=== PATIENT | male | born 1950 | race Caucasian/White ===

== ENCOUNTER → 2021-12-20 09:11 | Outpatient (BNVA) | payer MEDICARE, OTHER, SELFPAY | PROVIDERS: PCP Internal Medicine Hematology & Oncology; Visit Provider Nurse Practitioner Family | DX: G47.33 Obstructive sleep apnea (adult) (pediatric) (principal) | CPT/HCPCS: 99202 ==

== ENCOUNTER → 2022-07-29 09:57 | Outpatient (BNVA) | payer MEDICARE, OTHER, SELFPAY | PROVIDERS: PCP Internal Medicine Hematology & Oncology; Visit Provider Nurse Practitioner Family | DX: G47.33 Obstructive sleep apnea (adult) (pediatric) (principal) | CPT/HCPCS: 99212 ==

== ENCOUNTER 2024-05-16 11:29 | Outpatient (AMB) | payer MEDICARE, OTHER, SELFPAY ==
--- NOTE | 2024-05-16 11:38 | A.OFFVIS_ITS ---
Vital Signs 05/16/24 11:41 Height 5 ft 10 in Weight 178 lb BMI 25.5 BP 105/58 L Blood Pressure Location Rt brachial Position Sitting Pulse 56 Pulse Source Pulse Oximeter Pulse Oximetry (%) 99 Oxygen Delivery Method Room Air Intake Visit Reasons: 1yr follow up chadd Direct Mail Coordinator Required: No Accompanied by: Daughter Allergies carisoprodol Allergy (Mild, Verified 05/16/24 11:43) Rash Ssebwnf-WIL-TpI Reductase Inhibitor Adverse Reaction (Mild, Verified 05/16/24 11:43) headaches naproxen Adverse Reaction (Verified 05/16/24 11:43) Unknown Do you need a note to return to daycare/school/sports/work: No HPI Comments Details: 1 year follow up for CHADD Bekah daughter is here with him today. Compliance Report on BRIAN: Total usages is 68/90 for 76%, Total >4 hours avg night 5 hours 32 min, AHI 1.12 Chin straps bother him at times, will get new ones. L. ear Acoustic Neuroma, chatter and undistinguished noises only, had Radiation in September 2023, sees Dr Hutchins, in [facility] Neurosurgery and Neuro -Oncology. R. ear hearing is now at 60%. Balance is good, he goes to the [facility] in [place], PT is wonderful their . Balance class for Vestibular therapy, 2x/ week. Dizziness, and falls to the side however did not hit his head, improved since beginning vestibular PT. Denies Vertigo at baseline, spontaneously once in a while. Denies N/V Vision is good wears glasses. Mood, memory, diet is good Cleans the supplies, replaces filters, tube changes water. Cancer in Remission now. PFSH Surgical History Hx of hernia repair Hx of appendectomy Family History Mother Acute rheumatoid arthritis Lung cancer Breast cancer Father FH: coronary artery bypass surgery Social History Alcohol intake: current Patient Tobacco Use Status: Never used Tobacco Review of Systems Const All systems reviewed & are unremarkable except as noted in HPI and below Physical Exam Vital Signs: Last Vital Signs Pulse 56 05/16/24 11:41 BP 105/58 L 05/16/24 11:41 Pulse Ox 99 05/16/24 11:41 Oxygen Delivery Method Room Air 05/16/24 11:41 BMI result Body Mass Index 25.5 Const General: cooperative and no acute distress Nutritional Appearance: average body habitus Orientation/consciousness: patient oriented x3 Resp Effort & Inspection: normal respiratory effort and able to speak in complete sentences Neuro General: patient oriented x3, gait normal, moves all extremities, no focal motor deficits and CN's II-XI intact bilaterally Cognition (Neuro): normal cognition Gait exam (Neuro): Normal gait present Psych Appearance: grossly normal Mental Status: mental status grossly normal Speech and movement: Normal speech and movement present Affect: Anxious affect present Attitude: cooperative Assessment & Plan Assessment & Plan (1) Balance disorder: Code(s): R26.89 - Other abnormalities of gait and mobility Category: Medical (2) Acoustic neuroma: Code(s): D33.3 - Benign neoplasm of cranial nerves Category: Medical (3) CHADD (obstructive sleep apnea): Comment: A mild degree of CHADD. The AHI was 8 with oxygen oralia was 86%. Code(s): G47.33 - Obstructive sleep apnea (adult) (pediatric) Category: Medical Plan -Patient advised to get at least 7-8 hours of sleep per night. -Going to bed at a scheduled time and waking up at a set scheduled time, helps to regulate the (sleep, body temperature hormone release) - balances the natural circadian rhythm. -Cool, dark environment with soft music, no electronic devices, sets the environment optimizing sleep. -PT Vestibular Balance -daily exercise, night time yoga, soft music, diffusing essential oils can help. -BPH - Limit caffeine, and fluids to four hours prior to bed. Coding Level of Care Code Est Pt Level 3 (48827) Diagnoses Balance disorder R26.89 Acoustic neuroma D33.3 CHADD (obstructive sleep apnea) G47.33 Time Spent (min) 30 Comment improved sleep
[2024-05-16 11:41] VITALS: BP 105/58; PULSE 56; O2SAT 99; BMI 25.5
== END 2024-05-16 12:28 | disposition home or self-care (01) ==
PROVIDERS: Visit Provider Physician Assistant Medical
DX: R26.89 Other abnormalities of gait and mobility (principal); D33.3 Benign neoplasm of cranial nerves; G47.33 Obstructive sleep apnea (adult) (pediatric)
CPT/HCPCS: 99213

== ENCOUNTER → 2024-05-16 11:29 | Outpatient (BNVA) | payer MEDICARE, OTHER, SELFPAY | PROVIDERS: Visit Provider Physician Assistant Medical | DX: G47.33 Obstructive sleep apnea (adult) (pediatric) (principal); R26.89 Other abnormalities of gait and mobility; D33.3 Benign neoplasm of cranial nerves | CPT/HCPCS: 99212 ==

== ENCOUNTER 2025-04-28 10:51 | Outpatient (AMB) | payer MEDICARE, OTHER, SELFPAY ==
[2025-04-28 10:54] VITALS: BP 114/68; PULSE 68; O2SAT 98; BMI 27.5
--- NOTE | 2025-04-28 10:54 | MHC.OFFVIS ---
Vital Signs 04/28/25 10:54 Height 5 ft 10 in Weight 191 lb 8 oz BMI 27.5 BP 114/68 Blood Pressure Location Rt brachial Position Sitting Pulse 68 Pulse Source Pulse Oximeter Pulse Oximetry (%) 98 Oxygen Delivery Method Room Air Intake Visit Reasons: ESt PT new dx Tremors Intake Note: Patient presents follow up CHADD/Acoustic neuroma - pt with Other abnormalities of gait and mobility. New diagnosis - Tremor Piano Case And Bench Assembler Required: No Accompanied by: Self / Same As Patient Allergies carisoprodol Allergy (Mild, Verified 04/28/25 10:54) Rash Qhhlvmo-MLF-KaB Reductase Inhibitor Adverse Reaction (Mild, Verified 04/28/25 10:54) headaches naproxen Adverse Reaction (Verified 04/28/25 10:54) Unknown Medication List - Last Reconciled 04/28/25 by Tanika Banegas MD blood-glucose calibrat control As directed blood-glucose meter As directed celecoxib 100 mg PO BID cholecalciferol (vitamin D3) 25 mcg PO DAILY colchicine 0.6 mg PO DAILY diclofenac sodium 1% 1 g topical DAILY docusate sodium (Colace) 100 mg PO .prn duloxetine 40 mg PO DAILY ezetimibe-rosuvastatin 10-10 mg 1 tab PO DAILY fluticasone propionate 50 mcg/actuation (Allergy Relief (fluticasone)) 1 spray intranasal DAILY fluvastatin ER 80 mg PO BEDTIME gabapentin 300 mg PO BID glucosamine HCl 1,500 mg PO DAILY ketoconazole 2% 1 appl topical .1-2xperweek lamotrigine 100 mg PO DAILY lorazepam 0.5 mg PO DAILY PRN multivitamin (Daily Multi-Vitamin tablet) 1 tab PO DAILY omega-3 fatty acids 1,200 mg PO DAILY omeprazole 20 mg PO DAILY psyllium husk (Metamucil) 1 tbsp PO BID salsalate (Disalcid) 1,000 mg PO BID tamsulosin (Flomax) 0.4 mg PO DAILY HPI Comments Details: 74y/o male with sleep apnea on CPAP, dizziness , acoustic neuroma comes here for evaluation of tremors According to his daughter Bekah , he started noticing tremors in his hands about 1 year ago with action . 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 No trouble with voice or head tremors He has gait issues related to acoustic neuroma and his back surgery in summer. he has also noticed some leg jerks when he is about to sleep.He also reports stiffness in his feet. He is on CPAP and is compliant.90 day compliance 90 % AHI 2/hr [facility] Medical History (Updated 04/28/25 @ 11:28 by Tanika Banegas MD) Coarse tremors Surgical History Hx of hernia repair Hx of appendectomy Family History Mother Acute rheumatoid arthritis Lung cancer Breast cancer Father FH: coronary artery bypass surgery Social History Alcohol intake: current Patient Tobacco Use Status: Never used Tobacco Physical Exam Vital Signs: Last Vital Signs Pulse 68 04/28/25 10:54 BP 114/68 04/28/25 10:54 Pulse Ox 98 04/28/25 10:54 Oxygen Delivery Method Room Air 04/28/25 10:54 BMI result Body Mass Index 27.5 Const General: cooperative, healthy appearing and comfortable Nutritional Appearance: average body habitus Orientation/consciousness: patient oriented x3 Neuro Other: Good facial expression and blink Mild postural tremors estelita UE FFM and foot taps - good Mild left foot weakness dorsiflexion Gait- mild antalgic, good posture , no rest tremors , decreased arm swings estelita General: patient oriented x3, tone normal and moves all extremities Cranial nerves: Yes Nystagmus not present and Yes Normal facial strength present Cognition (Neuro): normal cognition Gait exam (Neuro): Antalgic gait present Deep tendon reflexes (DTR's): Right triceps reflex intensity grade: 2+, Left triceps reflex intensity grade: 2+, Rt Biceps (C5, C6): 2+, Left biceps reflex intensity grade: 2+, Right brachioradialis reflex intensity grade: 2+, Left brachioradialis reflex intensity grade: 2+, Right patellar reflex intensity grade: 1+ and Left patellar reflex intensity grade: 1+ Coordination: rtnynj-to-fyyd test normal Assessment & Plan Assessment & Plan (1) Coarse tremors: Comment: no signs of parkinsons , mild likley exagerrated physiological tremors Code(s): G25.2 - Other specified forms of tremor Category: Medical (2) CHADD (obstructive sleep apnea): Comment: A mild degree of CHADD. The AHI was 8 with oxygen oralia was 86%. Code(s): G47.33 - Obstructive sleep apnea (adult) (pediatric) Category: Medical (3) Acoustic neuroma: Comment: had radiation Code(s): D33.3 - Benign neoplasm of cranial nerves Category: Medical Plan Will monitor tremors No need for medications now Continue CPAP compliance stressed. Coding Level of Care Code Complex visit Add On G2211 Diagnoses Coarse tremors G25.2 CHADD (obstructive sleep apnea) G47.33 Acoustic neuroma D33.3
--- OUTSIDE RECORDS SUMMARY | 2025-04-28 13:42 | XMS_ITS | Encounter Summary ---
Author Organization [facility] [employer] [facility] Address [address] [place] [address] Care Team Providers Care Buyer Internship Name Role Phone Zaheer Castro Primary Care Provider Encounter Details Date Type Department Care Team (Late st Contact Info) Description 04/13/2019 Scanned Document [facility] [address] [address] External, Provider Social History Tobacco Use Types Packs/Day Years Used Date Smoking Tobacco: Never Smokeless Tobacco: Never Alcohol Use Standard Drinks/Week Comments Yes 0 (1 standard drink = 0.6 oz pur e alcohol) occasionally PHQ-2 Answer Date Recorded PHQ-2 Score 2 01/31/2019 Sex and Gender Information Value Date Recorded Sex Assigned at Not on file Legal Sex Male 11:37 AM EST Gender Identity Not on file Sexual Orientation Not on file documented as of this encounter Plan of Treatment Upcoming Encounters Date Type Department Care Team (Late st Contact Info) Description 05/19/2025 1:00 PM EST [facility] at [address] [place] [address] Clarisa Naranjo AuD 05/19/2025 1:30 PM EST Procedure [facility] at [address] [place] [address] Clarisa Naranjo, AuD 08/19/2025 10:00 AM EDT Procedure visit [facility] at [address] [facility] [address] [place] [address] Clarisa Naranjo, AuD 02/19/2026 11:00 AM EDT Procedure visit [facility] [place] at 800 [facility] [address] [place] [address] Clarisa Naranjo, AuD 02/19/2026 11:30 AM EDT Procedure visit [facility] at 800 [facility] [address] [place] [address] Clarisa Naranjo, Mehul documented as of this encounter Visit Diagnoses Not on filedocumented in this encounter Additional Health Concerns Assessment Noted Time PHQ-9 Depression Total Score: 2 02/01/20 19 3:19 PM EDT documented as of this encounter Care Teams Buyer Internship Relationship Specialty Start Date End Date Zaheer Castro PA [address] [place], [place] [address] [address] PCP - General 09/15/22 documented as of this encounter
--- OUTSIDE RECORDS SUMMARY | 2025-04-28 13:42 | XMS_ITS | Clinical Summary ---
Author Organization [address] Address [address] [place] [id number] Care Team Providers Care Hobbies And Crafts Sales Representative Name Role Phone Zaheer Castro Primary Care Provider Allergies Active Allergy Reactions Criticality Noted Date Comments Naproxen Hives,Swelling High 06/14/2017 Carisoprodol Hives,Swelling High 07/26/2016 ASA reaction as well Qhapudp-Pvf-Kqi Reductase Inhibitors 06/14/2017 headaches Medications fluvastatin XL (LESCOL XL) 80 mg 24 hr tablet Take 1 tablet (80 mg total) by mouth daily. Active omeprazole (PRILOSEC) 20 MG capsule Take 1 capsule (20 mg total) by mouth daily. Active ezetimibe (ZETIA) 10 mg tablet Take 1 tablet (10 mg total) by mouth daily. Active tamsulosin (FLOMAX) 0.4 mg Cp24 24 hr capsule Take 1 capsule (0.4 mg total) by mouth daily. Active fish oil-omega-3 fatty acids 1,000 mg capsule Take 2 capsules (2 g total) by mouth daily. Per pt states takes 1200 mg. Active GLUCOSAMINE SULFATE (GLUCOSAMINE ORAL) Take by mouth daily. Active multivitamin capsule Take 1 capsule by mouth daily. Active diclofenac (VOLTAREN) 1 % gel Apply topically 4 (four) times daily.. Active psyllium (METAMUCIL) packet Take 1 packet by mouth 2 (two) times daily. Active busPIRone (BUSPAR) 10 MG tablet 10 mg daily. 0 9 Active ibuprofen (ADVIL,MOTRIN) 400 MG tablet Take 1 tablet (400 mg total) by mouth every 6 (six) hours as needed. Active lamoTRIgine XR (LAMICTAL XR) 100 mg 24 hr tablet 1 tablet (100 mg total) at bedtime. 0 9 Active polyethylene glycol (MIRALAX) 17 gram packet Take 1 packet (17 g total) by mouth daily. Mix in 8 ounces of water, juice, soda, coffee or tea prior to taking. Active docusate sodium (COLACE) 100 mg capsule Take 1 capsule (100 mg total) by mouth daily. Active senna (SENOKOT) 8.6 mg tablet Take 1 tablet (8.6 mg total) by mouth every evening before dinner. Active LORazepam (ATIVAN) 0.5 mg tablet TAKE 1 TABLET BY MOUTH EVERY DAY NEEDED FOR ANXIETY 1 Active terbinafine HCL (LAMISIL) 1 % cream Apply topically 2 (two) times daily. 30 g 2 1 Active lamoTRIgine (LAMICTAL) 100 mg immediate release tablet Take 1 tablet (100 mg total) by mouth daily. Active DULoxetine (CYMBALTA) 40 mg delayed release capsule Take by mouth. 2 Active Hospital, Clinic, or Other Facility Administered Medication Ordered Dose Route Frequency Start Date End Date Status lidocaine uro-jet (XYLOCAINE) 2 % jelly 10 mL 10 mL INTRA-URETHR ONCE 07/05/2018 Active cephALEXin (KEFLEX) capsule 500 mg 500 mg Oral ONCE 07/05/2018 Active Active Problems Problem Noted Date Diagnosed Date Sensorineural hearing loss, bilateral 04/23/2021 Right groin pain 10/12/2020 BPH with obstruction/lower urinary tract symptom s 07/20/2018 Overview (07/20/2018): Added automatically from request for surgery [id number] BPH with urinary obstruction 07/04/2017 Overview (07/04/2017): Added automatically from request for surgery [id number] Encounters Date Type Department Care Team Description 02/17/2025 11:30 AM EDT Procedure [facility] at [address] [place] [address] [address] [place] [address] Epifanio Snow AuD Sensorineural hearing loss, bilateral (Primary Dx) 02/17/2025 11:00 AM EDT Procedure visit [facility] at [address] [place] [address] [address] [place] [address] Epifanio Snow AuD Sensorineural hearing loss, bilateral (Primary Dx) from Last 3 Months Immunizations Immunization Administration Dates Next Due Influenza, seasonal trivalen t, (65Yr+) adjuvanted, preservative free 02/13/2024 Family History Medical History Relation Name Comments Rheumatoid arthritis Mother Relation Name Status Comments Father Mother Social History Tobacco Use Types Packs/Day Years Used Date Smoking Tobacco: Never Smokeless Tobacco: Never Tobacco Cessation:Counseling Given: Not Answered Alcohol Use Standard Drinks/Week Comments Yes 1 (1 standard drink = 0.6 oz pur e alcohol) occasionally PHQ-2 Answer Date Recorded PHQ-2 Total Score 0 12/23/2021 Sex and Gender Information Value Date Recorded Sex Assigned at Not on file Legal Sex Male 11:37 AM EST Gender Identity Not on file Sexual Orientation Not on file Last Filed Vital Signs Vital Sign Reading Time Taken Comments Blood Pressure 114/54 08/21/2023 3:33 PM EDT Md is aware Pulse 72 08/21/2023 3:33 PM EDT Temperature 36.1 C (97 F) 08/21/2023 3:33 PM EDT Respiratory Rate 18 03/21/2023 11:0 0 AM EDT Oxygen Saturation 98% 08/21/2023 3:3 3 PM EDT Inhaled Oxygen Concentration - - Weight 78.3 kg (172 lb 9.6 oz) 08/21/19 24 3:33 PM EDT Height 177.8 cm (5' 10 ) 12/23/2021 1:2 7 PM EDT Body Mass Index 24.77 12/23/2021 1:27 PM EDT Plan of Treatment Upcoming Encounters Date Type Department Care Team (Late st Contact Info) Description 05/19/2025 1:00 PM EST [facility] at [address] [place] [address] [address] [place] [address] Clarisa Naranjo, AuD 05/19/2025 1:30 PM EST Procedure visit [facility] at 800 [facility] 800 [facility] 4th [facility] [place] [address] Clarisa Naranjo, AuD 08/19/2025 10:00 AM EDT Procedure visit [facility] at 800 [facility] [address] [place] [address] Clarisa Naranjo, AuD 02/19/2026 11:00 AM EDT Procedure visit [facility] at 800 [facility] [address] [place] [address] Clarisa Naranjo, AuD 02/19/2026 11:30 AM EDT Procedure visit [facility] at 800 [facility] [address] [place] [address] Clarsia Naranjo, AuD Health Maintenance Due Date Last Done Comments HIV screening 1963 Hepatitis C screening 1968 Lipid disorder screening 1990 Colon cancer screening, Colonoscopy 1995 Diabetes screening 1995 Influenza vaccine 01/03/2025 02/13/2024, , 04/10/2023, Additional history exists Covid-19 vaccine series (2024- season) 2025 11/26/2023, 04/05/2023, 02/06/2022, Additional history exists Tetanus adult (Td q 10,TDAP once) 11/12/2034 11/12/2024, 10/23/2012 Shingles vaccine (Shingrix) Completed 11/12/2021, 0 07/09/2021 Pneumococcal Vaccine (50+ years) Completed 05/02/2023, 10/14/2016, 09/14/2015 RSV Immunization Completed 06/27/2024 Meningococcal B Vaccine Aged Out No l onger eligible based on patient's age to complete this topic Meningococcal Vaccine Aged Out No elliott cornelio eligible based on patient's age to complete this topic Medical Devices Implanted Type Area Community Education Specialist Device Identifier Shelf Expiration Date Model / Serial / Lot Syringe 100-300mm Um Prefilled - [id number] Implanted:10/03 by AyAlejandro chapa MD at [address] (Quantity not on file) Implant [facility] [id number] 05/04/2020 [id number] / / [id number] Angio Seal Vip 6fr .035 [id number] - [id number] Implanted:10/03 by Alejandro Rivera MD at [address] (Quantity not on file) Implant [employer] [id number] 05/04/2019 [id number] / / [id number] Coil Vasc Sft 2 Mm Henrietta 7 Cm - [id number] Implanted:10/03 by Alejandro Rivera MD at [address] (Quantity not on file) Implant [facility] [id number] 02/14/2022 [id number] / / [id number] Coil Vasc Sft 2 Mm Henrietta 7 Cm - [id number] Implanted:10/03 by Alejandro Rivera MD at [address] (Quantity not on file) Implant [facility] [id number] 02/14/2022 [id number] / / [id number] Coil Vasc Sft 2 Mm Henrietta 7 Cm - [id number] Implanted:10/03 by Alejandro Rivera MD at [address] (Quantity not on file) Implant [facility] [id number] 02/14/2022 [id number] / / [id number] Coil Vasc Std 2 Mm Henrietta 3 Cm - [id number] Implanted:10/03 by Alejandro Rivera MD at [address] (Quantity not on file) Implant [facility] [id number] 09/05/2023 [id number] / / [id number] Mesh Pre-Formed 3dmax Left Large 4.3 In X 6.3 In - [id number] Implanted:11/2019 by Gerard Gonzalez MD at [address] (Quantity not on file) Implant Left: Inguinal CR BARD [id number] 01/31/2024 [id number] / / [id number] Mesh Pre-Formed 3dmax Right Large 4.3 In X 6.3 In - [id number] Implanted:0 11/2019 by Gerard Gonzalez MD at [address] (Quantity not on file) Implant Right: Inguinal CR BARD [id number] 10/31/2023 [id number] / / [id number] Titanium Description:Dental implant Insurance MEDICARE on file [facility] MED[facility] Member Subscriber Plan / Payer ( fective 2015-Present) Name:Tracekim Juan Member ID:[id number] Relation to Subscriber:Self Name:Juan Hinton Subscriber ID:[id number] Payer ID:[id number] Group ID:Not on file Type:Not on file Address: [address] on file MEDICARE on file Care Teams Hobbies And Crafts Sales Representative Relationship Specialty Start Date End Date Zaheer Castro PA [address] [place] [phone] PCP - General 09/15/22
--- OUTSIDE RECORDS SUMMARY | 2025-04-28 13:42 | XMS_ITS | Encounter Summary ---
Author Organization [facility] [employer] [facility] and [facility] Address [address] [place] [address] Care Team Providers Care Revenue Cycle Manager Name Role Phone Zaheer Castro Primary Care Provider Encounter Details Date Type Department Care Team (Late st Contact Info) Description 04/24/2019 Scanned Document [facility] at 40 [facility] [address] [address] External, Provider Social History Tobacco Use Types [...] Procedure visit [facility] at [address] [place] [address] Clarisa Naranjo AuD 05/19/2025 1:30 PM EST Procedure [facility] at [address] [place] [address] Clarisa Naranjo, AuD 08/19/2025 10:00 AM EDT Procedure visit [facility] at 800 [facility] [address] [place] [address] Clarisa Naranjo, AuD 02/19/2026 11:00 AM EDT Procedure visit [facility] at 800 [facility] [address] [place] [address] Clarisa Naranjo, AuD 02/19/2026 11:30 AM EDT Procedure visit [facility] at 800 [facility] [address] [place] [address] Clarisa Naranjo, Mehul documented as of this encounter Procedures Procedure Name Priority Date/Time Associated Diagnosis Comments CT RESULT SCAN Routine 04/14/2019 documented in this encounter Results * CT Result Scan (04/14/2019) us Provider External IMG SCAN REPORTS Final Result documented in this encounter Visit Diagnoses Not on filedocumented in this encounter Additional Health Concerns Assessment Noted Time PHQ-9 Depression Total Score: 2 02/01/20 19 3:19 PM EDT documented as of this encounter Care Teams Revenue Cycle Manager Relationship Specialty Start Date End Date Zaheer Castro PA [address] [place], [place] [address] [address] PCP - General 09/15/22 documented as of this encounter
--- OUTSIDE RECORDS SUMMARY | 2025-04-28 13:44 | XMS_ITS ---
Author Name [facility] Organization Unknown Encounters Encounter Type Encounter Reason Primary Diagnosis Location Date Ambulatory Benign neoplasm of cranial nerves 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 01/06/2022 Care Team Organization Name Specialty Phone Email Start Date End Da te [facility] 01/22/2025 [facility] Ch[facility] Sage [facility] 02/09/202301/21 [facility] Zaheer Castro Primary Care 11/11/202201/03 [facility] Kee Tyson Primary Care 04/12/2022 4 [facility] ELLEN BAEZ Primary Care 02/08/2022 2
== END 2025-04-28 11:39 | disposition home or self-care (01) ==
LOC: HO.HSMS 10:52
PROVIDERS: PCP Internal Medicine Hematology & Oncology; Visit Provider Psychiatry & Neurology Neurology
DX: G25.2 Other specified forms of tremor (principal); G47.33 Obstructive sleep apnea (adult) (pediatric); D33.3 Benign neoplasm of cranial nerves
CPT/HCPCS: 99213; G2211

== ENCOUNTER → 2025-04-28 10:51 | Outpatient (BNVA) | payer MEDICARE, OTHER, SELFPAY | PROVIDERS: PCP Internal Medicine Hematology & Oncology; Visit Provider Psychiatry & Neurology Neurology | DX: G47.33 Obstructive sleep apnea (adult) (pediatric) (principal); G25.2 Other specified forms of tremor; D33.3 Benign neoplasm of cranial nerves; Z99.89 Dependence on other enabling machines and devices | CPT/HCPCS: 99212 ==

== ENCOUNTER 2025-05-15 10:47 | Outpatient (AMB) | payer MEDICARE, OTHER, SELFPAY ==
--- NOTE | 2025-05-15 11:10 | MHC.OFFVIS ---
Vital Signs 05/15/25 11:25 Height 5 ft 10 in Weight 192 lb 8 oz BMI 27.6 BP 120/80 Blood Pressure Location Lt brachial Position Sitting Pulse 61 Pulse Source Pulse Oximeter Pulse Oximetry (%) 95 Oxygen Delivery Method Room Air Intake Visit Reasons: Follow Up 1yr Allergies carisoprodol Allergy (Mild, Verified 04/28/25 10:54) Rash Gojuisb-VWF-EqD Reductase Inhibitor Adverse Reaction (Mild, Verified 04/28/25 10:54) headaches naproxen Adverse Reaction (Verified 04/28/25 10:54) Unknown HPI Comments Details: 74y/o male with an acoustic neuroma, on cpap therapy for chadd, presents for and evaluation of tremors. CHADD Compliance Report use is compliant 02/2025- 05/2025 reviewed with pt. Total use 80/90 days, > hours 28/30avg use daily >6hours 33min Med press [id number] and leaks 25.9min AHI 2.05 Washes his mask, rinses hoses, changes filters and fills reservoir with water. According to his daughter Bekah , he started noticing tremors in his hands about 1 year ago and they vary with activities. 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 The tremors improve at rest as he stops what he is doing. Denies oral, voice or head tremors. He has gait issues related to an acoustic neuroma and his back surgery in summer. He has also noticed some leg jerks when he is about to fall sleep. He has foot drop with ambulating and reports stiffness in his feet like an elastic band that has shrunk. He has burning pain 10/10 with hammer toe l. foot, 2nd digit, which causes difficulty with gait and balance, and near falls. He has paresthesias since his back surgery due to l5/l5 disc herniation, and now impingement of sciatic nerve. He sleeps more comfortably with his cpap, likes the pressures and temperatures, uses his nasal pillows. He is chronically fatigued despite taking naps daily and thinks this is related to h/o rsv and covid. FOR[facility]LY [facility] Medical History Coarse tremors Surgical History Hx of hernia repair Hx of appendectomy Family History Mother Acute rheumatoid arthritis Lung cancer Breast cancer Father FH: coronary artery bypass surgery Social History Alcohol intake: current Patient Tobacco Use Status: Never used Tobacco Physical Exam Vital Signs: Last Vital Signs Pulse 61 05/15/25 11:25 BP 120/80 05/15/25 11:25 Pulse Ox 95 05/15/25 11:25 Oxygen Delivery Method Room Air 05/15/25 11:25 BMI result Body Mass Index 27.6 Const General: cooperative, healthy appearing and comfortable Nutritional Appearance: average body habitus Orientation/consciousness: patient oriented x3 HEENT Face and sinus: Yes normal facial exam Teeth and gingiva: other (mallampti score is 4) Resp Effort & Inspection: normal respiratory effort and able to speak in complete sentences Neuro Other: Good facial expression and blink Mild postural tremors estelita UE L>R FFM and foot taps - good Mild left foot weakness dorsiflexion Gait- mild antalgic, good posture , no rest tremors , decreased arm swings estelita General: patient oriented x3, tone normal and moves all extremities Cranial nerves: Yes Nystagmus not present and Yes Normal facial strength present Cognition (Neuro): normal cognition Gait exam (Neuro): Antalgic gait present Deep tendon reflexes (DTR's): Right triceps reflex intensity grade: 2+, Left triceps reflex intensity grade: 2+, Rt Biceps (C5, C6): 2+, Left biceps reflex intensity grade: 2+, Right brachioradialis reflex intensity grade: 2+, Left brachioradialis reflex intensity grade: 2+, Right patellar reflex intensity grade: 1+ and Left patellar reflex intensity grade: 1+ Coordination: [id number] test normal Psych Appearance: grossly normal Speech and movement: Normal speech and movement present Thought process: Normal thought process present Thought content: Normal thought content present Results Reviewed Results Reviewed: CHADD Compliance Report use is compliant 02/2025- 05/2025 reviewed with pt. Total use 80/90 days, and >4 hours 28/30avg use daily >6hours 33min Med press [id number] and leaks 25.9min AHI 2.05 Washes his mask, rinses hoses, changes filters and fills reservoir with water. 08/2024 consult note reviewed, labs reviewed with pt. Assessment & Plan Assessment & Plan (1) Coarse tremors: Comment: no signs of parkinsons , mild likley exagerrated physiological tremors Code(s): G25.2 - Other specified forms of tremor Category: Medical (2) Acoustic neuroma: Comment: had radiation Code(s): D33.3 - Benign neoplasm of cranial nerves Category: Medical (3) Balance disorder: Comment: Has PT currently for the lower back pain. Code(s): R26.89 - Other abnormalities of gait and mobility Category: Medical (4) Hammer toe of second toe of left foot: Comment: referral requested for podiatry due to burning pain. Code(s): M20.42 - Other hammer toe(s) (acquired), left foot Category: Medical (5) RLS (restless legs syndrome): Code(s): G25.81 - Restless legs syndrome Category: Medical (6) Excessive daytime sleepiness: Code(s): G47.19 - Other hypersomnia Category: Medical Plan Will monitor tremors, No need for medications as pt is not bothered by Essential benign most likely action tremors l>r. CHADD mild Continue CPAP compliance stressed, using nasal pillows, the machine is airfit p10, resmed airsense 11 auto Pt.complaints of burning pain l. foot and hammer toe of 2nd digit causing gait and balance difficultly, requests podiatry referral PT -Balance and gait is off due to acoustic neuroma, continue PT for lower back pain since Jun 2024, RSV, then Dara.Dr. Michel spinal surgery. RLS will monitor paresthesias. Continue m Magnesium 400mg po daily at bedtime and Vit D 1000units daily for low/ irritable mood. Will complete labs cbc, cmp, b12, ferritin, tsh, folate, homocystein, mma. Pt may start B6 for nerves due to h/o radiation for neuroma. Labs reviewed with pt. F/U in 3 months Orders: Orders Complete Blood Count no Diff Today G25.81 - Restless legs syndrome, G47.19 - Other hypersomnia Comprehensive Met. Panel Today G25.81 - Restless legs syndrome, G47.19 - Other hypersomnia Ferritin Today G25.81 - Restless legs syndrome, G47.19 - Other hypersomnia Vitamin B6 Today G25.81 - Restless legs syndrome, G47.19 - Other hypersomnia Methylmalonic Acid Today G25.81 - Restless legs syndrome, G47.19 - Other hypersomnia, G47.9 - Sleep disorder, unspecified, R53.83 - Other fatigue Homocysteine Today G25.81 - Restless legs syndrome, G47.19 - Other hypersomnia, G47.9 - Sleep disorder, unspecified, R53.83 - Other fatigue Vitamin D 25-OH Total Today G25.81 - Restless legs syndrome, G47.19 - Other hypersomnia TSH reflex Free T4 Today G25.81 - Restless legs syndrome, G47.19 - Other hypersomnia Referrals Podiatry Referral M20.42 - Other hammer toe(s) (acquired), left foot, R26.89 - Other abnormalities of gait and mobility Medications: New magnesium oxide 400 mg PO DAILY 90 tabs 0RF 3 months cholecalciferol (vitamin D3) 1,000 units PO DAILY 90 caps 0RF Patient Instructions: Will refer to Podiatry for l. foot 2nd digit burning pain due to hammer toe causing gait and balance difficulty. Continue Compliance with cpap and >4 hours nightly, call the office if you need supplies, full face masks or pressure adjustments. Coding Level of Care Code Est Pt Level 4 (84635) Diagnoses Coarse tremors G25.2 Acoustic neuroma D33.3 Balance disorder R26.89 Hammer toe of second toe of left foot M20.42 RLS (restless legs syndrome) G25.81 Excessive daytime sleepiness G47.19
[2025-05-15 11:25] VITALS: BP 120/80; PULSE 61; O2SAT 95; BMI 27.6
== END 2025-05-15 12:12 | disposition home or self-care (01) ==
LOC: HO.HSMS 10:48
PROVIDERS: PCP Internal Medicine Hematology & Oncology; Visit Provider Physician Assistant Medical
DX: G25.2 Other specified forms of tremor (principal); D33.3 Benign neoplasm of cranial nerves; R26.89 Other abnormalities of gait and mobility; M20.42 Other hammer toe(s) (acquired), left foot; G25.81 Restless legs syndrome; G47.19 Other hypersomnia
CPT/HCPCS: 99214

== ENCOUNTER → 2025-05-15 10:47 | Outpatient (BNVA) | payer MEDICARE, OTHER, SELFPAY | PROVIDERS: PCP Internal Medicine Hematology & Oncology; Visit Provider Physician Assistant Medical | DX: G25.2 Other specified forms of tremor (principal); D33.3 Benign neoplasm of cranial nerves; G47.19 Other hypersomnia; R26.89 Other abnormalities of gait and mobility; G25.81 Restless legs syndrome; M20.42 Other hammer toe(s) (acquired), left foot | CPT/HCPCS: 99212 ==